=== PATIENT | male | born 1965 | race Caucasian/White ===

== ENCOUNTER 2017-01-14 06:09 | Inpatient (IN) | payer BC ==
[~2017-01-14 06:09] MED LIST: DENIES
[2017-01-15 06:53] LABS: BASO % 0.2 % (0-2); EOS % 0.1 % (0-7); HCT-HEMATOCRIT 46.7 % (36.0-53.5); HGB-HEMOGLOBIN 16.2 gm/dl (13.5-17.0); IMMATURE GRANULOCYTES ABSOLUTE 0.05 tho/cmm (0-0.03); IMMATURE GRANULOCYTES PERCENT 0.3 % (0-0.3); LYMPH % 6.8 % (20-45); LYMPH ABSOLUTE COUNT 1.3 tho/cmm (0.8-4.5); MCH (MEAN CORPUSCULAR HGB) 30.2 pg (28.0-32.0); MCHC MEAN CORPUSCULAR HGB CONC 34.7 % (32.0-36.0); MEAN PLATELET VOLUME 9.6 cmc (9.4-12.4); MONOCYTE ABSOLUTE COUNT 3.3 tho/cmm (0.0-1.2); NEUTROPHIL ABSOLUTE COUNT 14.7 tho/cmm (1.6-8.0); NEUTROPHIL-AUTOMATED 14.7 tho/cmm (1.6-8.0); NEUTROPHILS % 75.6 % (40-80); PLATELET COUNT 291 tho/cmm (150-450); RED BLOOD COUNT 5.37 mil/cmm (4.40-5.70); RED CELL DISTRIBUTION WIDTH 12.8 % (12.4-16.4); WHITE BLOOD COUNT 19.4 tho/cmm (4.0-10.0)
[2017-01-15 07:04] LABS: ANION GAP 13 mmol/L (0-20); BLOOD UREA NITROGEN 14 mg/dl (6-24); CALCIUM 9.4 mg/dl (8.5-10.5); CARBON DIOXIDE-VENOUS 26 mmol/L (22-32); CHLORIDE 102 mmol/l (96-110); CREATININE 0.96 mg/dl (0.60-1.30); GLUCOSE 112 mg/dL (70-110); POTASSIUM 3.9 mmol/L (3.7-5.1); SODIUM 137 mmol/L (135-145); eGFR VALUE FOR BLACK >90 mL/Min
[2017-01-17 05:26] LABS: ANION GAP 12 mmol/L (0-20); CALCIUM 9.4 mg/dl (8.5-10.5); CARBON DIOXIDE-VENOUS 29 mmol/L (22-32); CHLORIDE 102 mmol/l (96-110); CREATININE 1.05 mg/dl (0.60-1.30); GLUCOSE 117 mg/dL (70-110); POTASSIUM 3.6 mmol/L (3.7-5.1); SODIUM 139 mmol/L (135-145); eGFR VALUE FOR BLACK >90 mL/Min
[2017-01-17 05:27] LABS: BLOOD UREA NITROGEN 28 mg/dl (6-24)
[2017-01-17] MEDS ORDERED: CYCLOBENZAPRINE5 M1 PO (14:55)
[2017-01-17] MEDS ORDERED: COREG3.125 M1 PO (14:56)
[2017-01-17] MEDS ORDERED: NORCO 5-325 TA1 EACH PO (14:58)
[2017-01-17] MEDS ORDERED: TYLENOL325 M2 PO (14:59)
[2017-01-17] MEDS ORDERED: SENNA PLUS TAB1 EAC1 PO (15:01)
[2017-01-17] MEDS ORDERED: FLOMAX0.4 M1 PO (15:02)
[2017-01-17] MEDS ORDERED: MACROBID 100 M100 M1 PO (15:02)
== END 2017-01-17 15:45 | DRG 29 ==
LOC: SHSC 06:09 → ORE 14:07 → PACU 17:58 → 5EB 19:25
PROVIDERS: Nurse Practitioner Acute Care; ADMIT Neurological Surgery
PROC: 00BX0ZZ Excision of Thoracic Spinal Cord, Open Approach (ICD-10-PCS; principal; 2017-01-14)
PROC: 00NX0ZZ Release Thoracic Spinal Cord, Open Approach (ICD-10-PCS; 2017-01-14)
DX: C72.0 Malignant neoplasm of spinal cord (principal); R64 Cachexia; Z68.1 Body mass index [BMI] 19.9 or less, adult; N31.9 Neuromuscular dysfunction of bladder, unspecified; I10 Essential (primary) hypertension; Z91.81 History of falling; F17.210 Nicotine dependence, cigarettes, uncomplicated; R94.31 Abnormal electrocardiogram [ECG] [EKG]; I95.9 Hypotension, unspecified; D64.9 Anemia, unspecified
CPT/HCPCS: C1713; J0690; J2250